=== PATIENT | female | born 1995 | race Caucasian/White ===

== ENCOUNTER 2018-02-02 06:00 | Emergency (ER) | payer OTHER ==
[~2018-02-02] VITALS: Ht 157.5 cm; Wt 47.6 kg
[2018-02-02] MEDS ORDERED: PEPCID20 MG PO (13:03)
[2018-02-02] MEDS ORDERED: ZOFRAN4 MG PO (13:03)
== END 2018-02-02 13:31 | disposition home or self-care (01) ==
LOC: EMR PED 06:00 → ER 06:02 → EMR PED 06:02 → ER 13:31
DX: K29.70 Gastritis, unspecified, without bleeding (principal)